=== PATIENT | female | born 1950 | race Caucasian/White ===

== ENCOUNTER 2016-12-13 05:57 | Inpatient (IN) | payer OTHER ==
[2016-12-06 15:12] LABS: % IMMATURE GRANULYOCYTES 0.3 % (0.0-1.1); ABSOLUTE IMMATURE GRANULOCYTES 0.02 10^3/uL (0.00-0.10); ADD DIFF? NO; ADD MORPH? NO; ADD SCAN? NO; ATYPICAL LYMPHOCYTE FLAG 60 (0-99); FRAGMENT RBC FLAG 10 (0-99); HEMATOCRIT 39.6 % (38.0-47.0); HEMOGLOBIN 13.7 g/dL (12.6-16.3); LEFT SHIFT FLG 0 (0-99); LIPEMIA HEMOLYSIS FLAG 90 (0-99); MEAN CELL HEMOGLOBIN 32.7 pg (27.9-34.1); MEAN CELL HEMOGLOBIN CONCENTR. 34.6 g/dL (32.4-36.7); MEAN CELL VOLUME 94.5 fL (81.5-99.8); PLATELET CLUMPS FLAG 10 (0-99); PLATELET COUNT 293 10^3/uL (150-400); RED BLOOD CELL COUNT 4.19 10^6/uL (4.18-5.33); RED CELL DISTRIBUTION WIDTH 12.2 % (11.5-15.2)
[2016-12-13] MEDS ORDERED: FAMOTIDINE 20 MG TAB PO ONE (06:00)
[2016-12-13] MEDS ORDERED: TRANEXAMIC ACID 3,000 MG in NS 50 ML IRR ONE (06:00)
[2016-12-13] MEDS ORDERED: CHLORHEXIDINE GLUC HIBICLENS 118 ML BTL TP ONE (06:00)
[2016-12-13] MEDS ORDERED: DEXAMETHASONE 4 MG/ML VIAL IVP ONE (06:00)
[2016-12-13] MEDS ORDERED: VANCOMYCIN HCL/NORMAL SALINE 250 ML IV ONE (06:00)
[2016-12-13] MEDS ORDERED: ROPI/epiNEPH/KETOROLAC JOINT COCKTAIL IU ONE (06:00)
[2016-12-13] MEDS ORDERED: DEXAMETHASONE 4 MG/ML VIAL ONE (06:26)
[2016-12-13] MEDS ORDERED: ACETAMINOPHEN 325 MG TAB ONE (06:26)
[2016-12-13] MEDS ORDERED: FAMOTIDINE 20 MG TAB ONE (06:26)
[2016-12-13] MEDS ORDERED: LIDOCAINE 2% 5 ML SDV ONE (06:27)
[2016-12-13] MEDS ORDERED: LIDOCAINE 1% 2 ML INJ ONE (06:28)
[2016-12-13] MEDS ORDERED: SKIN ADHESIVE (DERMABOND) 1 EACH TP ONE (06:39)
[2016-12-13] MEDS ORDERED: VANCOMYCIN 1 GM VIAL IV ONE (06:39)
[2016-12-13] MEDS ORDERED: TRANEXAMIC ACID 3,000 MG/50 ML BAG IRR ONE (06:39)
[2016-12-13] MEDS ORDERED: LIDOCAINE 1% 5 ML SDV ID PRN (07:14)
[2016-12-13] MEDS ORDERED: LR 1,000 ML IV ONE (07:14)
[2016-12-13] MEDS ORDERED: BUPIVACAINE 0.25% 30 ML SDV ONE (07:35)
[2016-12-13] MEDS ORDERED: PROPOFOL/EMULSION 500 MG/50 ML BOTTLE IV ONE ×2 (07:36→08:27)
[2016-12-13] MEDS ORDERED: fentaNYL 100 MCG/2 ML INJ ONE (07:36)
[2016-12-13] MEDS ORDERED: diphenhydrAMINE 25 MG CAP PO PRN (07:44)
[2016-12-13] MEDS ORDERED: METOCLOPRAMIDE 10 MG/2 ML VIAL IVP PRN (07:44)
[2016-12-13] MEDS ORDERED: POLYETHYLENE GLYCOL 3350 17 GM PKT PO PRN (07:44)
[2016-12-13] MEDS ORDERED: LACTULOSE 20 GM/30 ML UDCUP PO PRN (07:44)
[2016-12-13] MEDS ORDERED: PROMETHAZINE HCL 25 MG/ML INJ IVP PRN (07:44)
[2016-12-13] MEDS ORDERED: BISACODYL 10 MG SUPP PR PRN (07:44)
[2016-12-13] MEDS ORDERED: PHARMACY PAIN CONSULT 1 EA MISC PRN (07:44)
[2016-12-13] MEDS ORDERED: DIPHENOXYLATE/ATROPINE LOMOTIL 1 TAB PO PRN (07:44)
[2016-12-13] MEDS ORDERED: TEMAZEPAM 15 MG CAP PO PRN (07:44)
[2016-12-13] MEDS ORDERED: MAGNESIUM HYDROXIDE 30 ML UDCUP PO PRN (07:44)
[2016-12-13] MEDS ORDERED: LIDOCAINE 2% 100 MG/5 ML SYR ONE (07:45)
--- NOTE | 2016-12-13 09:06 | POSTOPPROG ---
Post Op Note Date of Operation: 12/13/16 Surgeon: Guy Guzman [employer] Maintainer: pham guzman Anesthesiologist: dr. resendiz Anesthesia: Spinal Pre-op Diagnosis: left knee OA Post-op Diagnosis: same Indication: left knee pain due to OA that failed conservative measuresq Procedure: L TKA Findings: severe lateral knee OA Inf/Abcess present in the surg proc area at time of surgery?: No EBL: 50-100
[2016-12-13] MEDS ORDERED: PROMETHAZINE HCL 25 MG/ML INJ ONE (09:30)
[2016-12-13] MEDS: SENNOSIDES/DOCUSATE SODIUM TAB PO SCH ×2 (10:20→20:40)
[2016-12-13] MEDS: ACETAMINOPHEN 325 MG TAB PO SCH ×2 (11:03→17:31)
[2016-12-13] MEDS: oxyCODONE IR 5 MG TAB PO PRN ×5 (11:03→22:26)
[2016-12-13] MEDS: LR 1,000 ML IV SCH ×2 (12:27→21:23)
[2016-12-13] MEDS: CYCLOBENZAPRINE 10 MG TAB PO PRN (12:38)
[2016-12-13] MEDS: PROMETHAZINE HCL 25 MG TAB PO PRN ×2 (15:01→20:49)
[2016-12-13] MEDS ORDERED: VANCOMYCIN 1 GM in D5W 250 ML IV SCH (19:00)
[2016-12-13] MEDS: DULoxetine 20 MG CAP PO SCH (20:39)
[2016-12-13] MEDS: FAMOTIDINE 20 MG TAB PO SCH (20:40)
[2016-12-13] MEDS ORDERED: DULOXETINE HCL 40 MG PO SCH (21:00)
[2016-12-13] MEDS: ASPIRIN 325 MG TAB PO SCH (21:23)
--- NOTE | 2016-12-13 23:51 | GOP ---
[f rep st] OPERATIVE REPORT DATE OF OPERATION: 12/13/2016 SURGEON: Hortensia Sultana MD FURNITURE ASSEMBLER: Loreto Sultana PA-C. ANESTHESIA: Spinal. PREOPERATIVE DIAGNOSIS: Left knee osteoarthritis. POSTOPERATIVE DIAGNOSIS: Left knee osteoarthritis. PROCEDURE PERFORMED: Left total knee arthroplasty. FINDINGS/PATHOLOGY: Severe lateral and patellofemoral osteoarthritis. ESTIMATED BLOOD LOSS: 30 cc. INDICATIONS: This is a 66-year-old female with severe and progressive pain and deformity of the left knee unresponsive to conservative care. Risks and benefits of the surgical intervention were explained in detail. DESCRIPTION OF PROCEDURE: The patient was brought to the operative room and placed on the table in the supine position. Spinal anesthesia was induced without difficulty. A pneumatic tourniquet was applied about the left proximal thigh, and the leg was prepped and draped in a sterile fashion. The leg hall was applied. After exsanguination by elevation the tourniquet was inflated to 250 mm of mercury. Incision was made anterior medial from the tibial tuberosity to a point 2 cm proximal to the superior pole of the patella. Medial parapatellar arthrotomy was carried out from the superior pole of the patella and posteriorly in line with the fibers of the Type II VMO. The medial collateral ligament was elevated and the infrapatellar fat pad was resected. The patella was everted and the articular surface was excised. A 32 mm patellar button was placed. The distal femoral guide hole was drilled and the 6 degree alignment layla was placed. A 10 mm distal femoral cut was made without difficulty. Attention was turned to the tibia and a standard 6 mm cut based on the medial tibial condyle was performed. The tibial articular surface was excised without difficulty. Attention was turned back to the femur and a size 3 Triathlon femoral cutting block was positioned. Anterior, posterior, and chamfer cuts were made, followed by the intercondylar box cut. The knee was extended and the remnants of the medial and lateral meniscus were excised. The posterior capsule was injected with ropivacaine, epinephrine and Toradol. A size 3 MIS mini-keel tibial tray was positioned. Trial reduction was then carried out. There was excellent range of motion, alignment, and stability using the 13 mm polyethylene. All trials were then removed. The joint was thoroughly irrigated and carefully dried. Two packages of cement and 2 grams of vancomycin were mixed in the vacuum mixer and placed on the fixation surfaces of all surfaces of the components. The components were implanted and all excess cement was thoroughly removed. The permanent 13 mm polyethylene X3 was placed without difficulty. The tourniquet was deflated and all bleeders were coagulated. The wound was thoroughly irrigated and closed using interrupted sutures of 2-0 Vicryl for the joint capsule. The subcu was closed with 3-0 Vicryl and the skin with 4-0 Monocryl. Dermabond and Steri-Strips were applied followed by a compressive dressing. The patient was then moved from the operating room to the recovery room in good condition, having tolerated the procedure well. /[id number]/MODL MTDD
[2016-12-14] MEDS: ACETAMINOPHEN 325 MG TAB PO SCH ×4 (00:25→17:29)
[2016-12-14] MEDS: LEVOTHYROXINE 100 MCG TAB PO SCH (05:10)
[2016-12-14] MEDS: PROMETHAZINE HCL 25 MG TAB PO PRN (05:21)
[2016-12-14 05:50] LABS: HEMATOCRIT 27.8 % (38.0-47.0); HEMOGLOBIN 9.5 g/dL (12.6-16.3)
[2016-12-14] MEDS: oxyCODONE IR 5 MG TAB PO PRN ×4 (05:55→18:37)
[2016-12-14] MEDS: ASPIRIN 325 MG TAB PO SCH (08:45)
[2016-12-14] MEDS: SENNOSIDES/DOCUSATE SODIUM TAB PO SCH ×3 (08:45→21:04)
[2016-12-14] MEDS: FAMOTIDINE 20 MG TAB PO SCH ×3 (08:45→21:04)
[2016-12-14] MEDS: CYCLOBENZAPRINE 10 MG TAB PO PRN ×2 (08:56→17:29)
[2016-12-14] MEDS ORDERED: PROMETHAZINE HCL 25 MG TAB PO PRN (09:01)
--- NOTE | 2016-12-14 09:15 | SOAPPROG ---
SOAP Progress Note Assessment/Plan: Assessment: Patient is doing well POD 1 s/p L TKA 1.Pain management: pain is well controlled on oral pain meds. patient has chronic pain issues, but appears to be doing well this morning with pain management. We increased her oxycodone IR dose from 5-10 mg Q3H to 5-15mg Q4- 6H PRN. Patient states pain is present, but manageable. 2.Anemia: level is expected initially postop. Asymptomatic. Cont to monitor for symptoms 3.VTE ppx: recommend aspirin 325mg daily. Cont JHONY hose and SCD 4. d/c planning: d/c to home today vs tomorrow pending release from PT and continued pain control. Plan: 12/14/16 09:12 Subjective: Stephon is doing well this morning, states she had a significant increase in pain yesterday, but was able to go 8 hours without narcotic pain meds overnight. States pain is present, but manageable. Denies SOB, chest pain and N/V. Objective: Vital Signs Temp Pulse Resp BP Pulse Ox 36.7 C 99 18 132/73 H 94 12/14/16 08:00 12/14/16 08:00 12/14/16 08:00 12/14/16 08:00 12/14/16 08:00 Laboratory Results 12/14/16 05:00 12/13/16 12/14/16 12/15/16 05:59 05:59 05:59 Intake Total 4823 500 Output Total 5200 Balance -377 500 LLE: incision dressing is clean and dry, NVI, +pf/df ICD10 Worksheet Patient Problems: Problems Problem Status Onset Primary localized osteoarthritis of left knee Acute
[2016-12-14] MEDS: DULoxetine 20 MG CAP PO SCH ×2 (21:00→22:14)
[2016-12-14] MEDS: PROMETHAZINE HCL 25 MG SUPPR PR PRN (21:03)
[2016-12-15] MEDS: ACETAMINOPHEN 325 MG TAB PO SCH ×3 (01:02→11:38)
[2016-12-15] MEDS: PROMETHAZINE HCL 25 MG SUPPR PR PRN ×3 (02:59→15:10)
[2016-12-15 04:00] VITALS: RESP 18; O2SAT 93
[2016-12-15] MEDS: oxyCODONE IR 5 MG TAB PO PRN ×3 (04:29→15:49)
[2016-12-15 05:29] LABS: HEMATOCRIT 27.8 % (38.0-47.0); HEMOGLOBIN 9.7 g/dL (12.6-16.3)
[2016-12-15] MEDS: LEVOTHYROXINE 100 MCG TAB PO SCH (06:02)
[2016-12-15 07:29] VITALS: TEMP 98.5
[2016-12-15] MEDS: SENNOSIDES/DOCUSATE SODIUM TAB PO SCH (08:47)
[2016-12-15] MEDS: FAMOTIDINE 20 MG TAB PO SCH (08:47)
[2016-12-15] MEDS: ASPIRIN 325 MG TAB PO SCH (08:47)
--- NOTE | 2016-12-15 11:05 | SOAPPROG ---
SOAP Progress Note Assessment/Plan: Assessment: Patient is doing well POD 2 s/p L TKA 1.Pain management: pain is well controlled on oral pain meds. patient has chronic pain issues, but appears to be doing well this morning with pain management. We increased her oxycodone IR dose from 5-10 mg Q3H to 5-15mg Q4- 6H PRN. Patient states pain is present, but manageable. 2.Anemia: level is expected initially postop. Asymptomatic. Cont to monitor for symptoms 3.VTE ppx: recommend aspirin 325mg daily. Cont JHONY best and SCD 4. d/c planning: d/c to home today pending release from PT and continued pain control. Discussed home health PT with patient and her , as of yesterday they said they don't think they need home health PT as they have already set up outpatient PT. Plan: 12/14/16 09:12 12/15/16 11:03 Subjective: Stephon is doing ok this morning, some nausea and emesis overnight, denies SOB, chest pain. Objective: Vital Signs Temp Pulse Resp BP Pulse Ox 36.9 C 97 18 149/82 H 93 12/15/16 07:28 12/15/16 07:28 12/15/16 07:28 12/15/16 07:28 12/15/16 07:28 Laboratory Results 12/15/16 04:43 12/14/16 12/15/16 12/16/16 05:59 05:59 05:59 Intake Total 4823 2300 Output Total 5200 2300 700 Balance -377 0 -700 LLE: incision dressing is clean and dry, NVI ICD10 Worksheet Patient Problems: Problems Problem Status Onset Primary localized osteoarthritis of left knee Acute
[2016-12-15 11:47] VITALS: BP 150/68; PULSE 96
--- NOTE | 2016-12-15 16:41 | GDS ---
[f rep st] DISCHARGE SUMMARY ADMISSION DIAGNOSIS: Left knee osteoarthritis. DISCHARGE DIAGNOSIS: Left knee osteoarthritis. PROCEDURE: Left total knee arthroplasty. VTE PROPHYLAXIS: Aspirin recommended for 3 weeks daily. BRIEF DESCRIPTION OF HOSPITAL STAY: Patient was admitted for an elective joint arthroplasty. The p atient tolerated the procedure well and has passed physical therapy. The patient was given appropri ate antibiotic prophylaxis and venous thromboembolism prophylaxis. The patient's pain was well cont rolled on oral pain medication, patient was holding down food, and had urinated. Decision was made to discharge the patient. The patient was given post-operative prescriptions pre-operatively. PLAN: Please follow up as scheduled at Dr. Sultana's office in 3 weeks. /[id number]/MODL
== END 2016-12-15 17:02 | disposition home or self-care (01) | DRG 470 ==
LOC: F3N 05:57
PROVIDERS: ADMIT Orthopaedic Surgery; ATTEND Orthopaedic Surgery
PROC: 0SRD0J9 Replacement of Left Knee Joint with Synthetic Substitute, Cemented, Open Approach (ICD-10-PCS; principal; 2016-12-13 08:15)
DX: M17.12 Unilateral primary osteoarthritis, left knee (principal); G89.29 Other chronic pain; E03.9 Hypothyroidism, unspecified; G43.909 Migraine, unspecified, not intractable, without status migrainosus
CPT/HCPCS: 97110-GP; 97116-GP; 97161-GP; 97165-GO; 97530-GP; 97535-GO; C1713; G8978-GP-CJ; G8979-GP-CI; G8980-GP-CI; G8987-GO-CK; G8988-GO-CI; J0171; J1100; J1885; J2001; J2550; J2704; J2765; J2795; J3010; J3370

== ENCOUNTER 2017-02-23 17:48 | Emergency (ER) | payer OTHER ==
[2017-02-23 18:01] VITALS: RESP 16; TEMP 98.4
--- NOTE | 2017-02-23 18:10 | EDPHY ---
H & P Stated Complaint: L side rib pain from 2 days ago Time Seen by Provider: 02/23/17 18:03 HPI/ROS: CHIEF COMPLAINT: Left rib pain HISTORY OF PRESENT ILLNESS: The patient is a 66-year-old female who comes to the emergency department complaining of left-sided rib pain. She states that yesterday she was stretching, reaching out to grab something when she heard a pop and had pain to her left ribs. She states that she cracked her ribs on the right side several years ago with similar movements. She had a knee surgery done last month which is recovering well. She had some extra Percocet and took last night and so was able to sleep but throughout the day today is had significant pain especially with twisting or bending. No pain with deep inspiration. No shortness of breath. REVIEW OF SYSTEMS: Constitutional: denies: chills, fever, recent illness, recent injury EENTM: denies: blurred vision, double vision, nose congestion Respiratory: denies: cough, shortness of breath Cardiac: denies: chest pain, irregular heart rate, lightheadedness, palpitations Gastrointestinal/Abdominal: denies: abdominal pain, diarrhea, nausea, vomiting, blood streaked stools Genitourinary: denies: dysuria, frequency, hematuria, pain Musculoskeletal: See HPI Skin: denies: lesions, rash, jaundice, bruising Neurological: denies: headache, numbness, paresthesia, tingling, dizziness, weakness Hematologic/Lymphatic: denies: blood clots, easy bleeding, easy bruising Immunologic/allergic: denies: HIV/AIDS, transplant EXAM: GENERAL: Well-appearing, well-nourished and in no acute distress. HEAD: Atraumatic, normocephalic. EYES: Pupils equal round and reactive to light, extraocular movements intact, sclera anicteric, conjunctiva are normal. ENT: TMs normal, nares patent, oropharynx clear without exudates. Moist mucous membranes. NECK: Normal range of motion, supple without lymphadenopathy or JVD. LUNGS: Exquisite point tenderness to left anterior ribs 11 and 12. Breath sounds clear to auscultation bilaterally and equal. No wheezes rales or rhonchi. HEART: Regular rate and rhythm without murmurs, rubs or gallops. ABDOMEN: Soft, nontender, normoactive bowel sounds. No guarding, no rebound. No masses appreciated. BACK: No CVA tenderness, no spinal tenderness, step-offs or deformities EXTREMITIES: Normal range of motion, no pitting or edema. No clubbing or cyanosis. NEUROLOGICAL: Cranial nerves II through XII grossly intact. Normal speech, normal gait. 5/5 strength, normal movement in all extremities, normal sensation PSYCH: Normal mood, normal affect. SKIN: Warm, dry, normal turgor, no visible rashes or lesions. Source: Patient Exam Limitations: No limitations - Personal History Current Tetanus/Diphtheria Vaccine: Yes Current Tetanus Diphtheria and Acellular Pertussis (TDAP): Yes - Medical/Surgical History Hx Asthma: No Hx Chronic Respiratory Disease: No Hx Diabetes: Yes Hx Cardiac Disease: No Hx Renal Disease: No Hx Cirrhosis: No Hx Alcoholism: No Hx HIV/AIDS: No Hx Splenectomy or Spleen Trauma: No Other PMH: hypothyroid, Orthopedic injuries - Family History Significant Family History: No pertinent family hx - Social History Smoking Status: Never smoked Alcohol Use: Sober Drug Use: None Constitutional: Initial Vital Signs Temperature (C) 36.9 C 02/23/17 17:49 Heart Rate 90 02/23/17 17:49 Respiratory Rate 16 02/23/17 17:49 Blood Pressure 126/90 H 02/23/17 17:49 O2 Sat (%) 100 02/23/17 17:49 O2 Delivery Mode Room Air Allergies/Adverse Reactions: ondansetron HCl [From Zofran (as hydrochloride)] Allergy (Intermediate, Verified 12/13/16 07:17) alendronate sodium [From Fosamax] Allergy (Unverified 11/13/16 10:57) Swelling/neck,face,throat buprenorphine [From Butrans] Allergy (Unverified 11/13/16 10:58) Vomiting cefaclor [From Ceclor] Allergy (Verified 11/13/16 10:55) cephalexin monohydrate [From Keflex] Allergy (Verified 11/13/16 10:55) ciprofloxacin Allergy (Unverified 11/13/16 10:55) Hives clarithromycin Allergy (Unverified 11/13/16 10:56) Other-Enter Comments erythromycin base Allergy (Verified 11/13/16 10:55) Penicillins Allergy (Verified 03/26/16 13:13) Sulfa (Sulfonamide Antibiotics) Allergy (Verified 11/13/16 10:55) teriparatide [From Forteo] Allergy (Unverified 11/13/16 10:57) Swelling/neck,face,throat Tetracyclines Allergy (Verified 11/13/16 10:55) Home Medications: Medication Instructions Recorded Duloxetine HCl 40 mg PO HS 03/26/16 Levothyroxine [Synthroid 100 mcg 100 mcg PO DAILY06 03/26/16 (*)] Biote 1 unit SQ Q90D 11/13/16 Compounded T3 Tab 24 mcg PO BID 11/13/16 Denosumab [Prolia] 60 mg SQ Q180D 11/13/16 Herbals/Supplements -Info Only 1 ea PO DAILY 11/13/16 Promethazine HCl [Phenergan 25mg 25 mg PO PRN PRN 11/13/16 (*)] oxyCODONE IR [Oxycodone Ir (*)] 5 mg PO HS PRN 11/13/16 Acetaminophen [Tylenol 325mg (*)] 650 mg PO Q6HRS #0 tab 12/14/16 Aspirin [Aspirin 325 mg (*)] 325 mg PO DAILY #0 tab 12/14/16 Sennosides/Docusate Sodium 1 - 2 tab PO BID #0 tab 12/14/16 [Senokot-S] oxyCODONE IR [Oxycodone Ir (*)] 5 - 15 mg PO Q4HRS PRN #0 tab 12/14/16 Medical Decision Making - Diagnostics Imaging Results: Imaging Impressions Ribs w/Chest X-Ray 02/23/17 18:09 Impression: Nondisplaced anterolateral left eighth rib fracture. Imaging: Discussed imaging studies w/ environmental field professional Radiologist, I viewed and interpreted images myself ED Course/Re-evaluation: 7:00 p.m. we discussed the the x-ray results. The patient is reassured. We discussed treatment. She declines pain medication. Differential Diagnosis: Partial list of the Differential diagnosis considered include but were not limited to; the contusion, strain, fracture and although unlikely based on the history and physical exam, I also considered pneumothorax, head injury, neck injury. I discussed these differential diagnoses and the plan with the patient as well as the usual and expected course. The patient understands that the diagnosis is provisional and that in medicine we are not always correct and that further workup is often warranted. Usual and customary warnings were given. All of the patient's questions were answered. The patient was instructed to return to the emergency department should the symptoms at all worsen or return, otherwise to followup with the physician as we discussed. Departure - Departure Disposition: Home, Routine, Self-Care Clinical Impression: Rib fracture Qualifiers: Encounter type: initial encounter Rib fracture type: single rib Fracture type: closed Laterality: left Qualified Code(s): S22.32XA - Fracture of one rib, left side, initial encounter for closed fracture Condition: Fair Instructions: Rib Fracture (ED) Referrals: JERONIMO LEWIS [Primary Care Provider] - As per Instructions
[2017-02-23 19:08] VITALS: BP 140/89; PULSE 89; O2SAT 95
== END 2017-02-23 19:08 | disposition home or self-care (01) ==
DX: S22.32XA Fracture of one rib, left side, initial encounter for closed fracture (principal); E11.9 Type 2 diabetes mellitus without complications; Z79.82 Long term (current) use of aspirin; X58.XXXA Exposure to other specified factors, initial encounter

== ENCOUNTER 2017-03-23 16:54 | Emergency (ER) | payer OTHER ==
--- NOTE | 2017-03-23 17:12 | CPEKG ---
Heart Rate: 85 RR Interval: 706 P-R Interval: 139 QRSD Interval: 84 QT Interval: 372 QTC Interval: 443 P [place]: 72 QRS [place]: 46 T Wave [place]: 57 EKG Severity - NORMAL ECG - EKG Impression: SINUS RHYTHM Electronically Signed By: Tray Tavera 23-Mar-2017 21:04:17
[2017-03-23 17:26] LABS: % IMMATURE GRANULYOCYTES 0.3 % (0.0-1.1); ABSOLUTE IMMATURE GRANULOCYTES 0.02 10^3/uL (0.00-0.10); ADD DIFF? NO; ADD MORPH? NO; ADD SCAN? NO; ATYPICAL LYMPHOCYTE FLAG 10 (0-99); FRAGMENT RBC FLAG 0 (0-99); HEMATOCRIT 37.3 % (38.0-47.0); HEMOGLOBIN 12.8 g/dL (12.6-16.3); LEFT SHIFT FLG 0 (0-99); LIPEMIA HEMOLYSIS FLAG 90 (0-99); MEAN CELL HEMOGLOBIN 31.4 pg (27.9-34.1); MEAN CELL HEMOGLOBIN CONCENTR. 34.3 g/dL (32.4-36.7); MEAN CELL VOLUME 91.4 fL (81.5-99.8); MEAN PLATELET VOLUME 11.2 fL (8.7-11.7); PLATELET CLUMPS FLAG 0 (0-99); PLATELET COUNT 258 10^3/uL (150-400); RED BLOOD CELL COUNT 4.08 10^6/uL (4.18-5.33)
[2017-03-23 17:35] LABS: POTASSIUM 4.2 mEq/L (3.5-5.2); SODIUM 137 mEq/L (134-144)
[2017-03-23 17:36] LABS: ANION GAP 11 mEq/L (8-16); CALCIUM 9.5 mg/dL (8.5-10.4); CARBON DIOXIDE 25 mEq/l (22-31); CHLORIDE 101 mEq/L (97-110); CREATININE 0.8 mg/dL (0.6-1.0); GLOMERULAR FILTRATION RATE > 60; GLUCOSE 89 mg/dL (70-100)
[2017-03-23 17:47] LABS: TROPONIN I < 0.012 ng/mL (0-0.034)
--- NOTE | 2017-03-23 17:56 | EDPHY ---
H & P Time Seen by Provider: 03/23/17 17:38 HPI/ROS: Chief complaint. Chest pain HPI. 66-year-old female presents with tightness across her chest and some discomfort radiating to her left shoulder. She feels slightly short of breath and feels constricted. She describes some of the tightness also has pressure and worse with taking a deep breath. Not worse with exertion. Somewhat worse with movement and she feels that she may be just slept on her chest wrong. She had a knee replacement 2 months ago this is healing and she is having physical therapy she has no unusual pain or swelling. No history of heart or lung problems. No fever or cough. ROS Constitutional. no fever/chills, no weakness Eyes. no problems with vision ENT. no sore throat, no nasal drainage Cardiovascular. Chest pressure and tightness Respiratory. Shortness of breath Abdominal. no abdominal pain, no nausea/vomiting, no diarrhea . no problems urinating MS. no calf pain/swelling, no neck/back pain, no joint pain Skin. no rash Lymph. no swollen glands Neuro. no headache, no dizziness, no difficulty walking or with speech Past Medical/Surgical History: Past medical history significant for knee replacement, hypothyroid Father had some kind of heart disease Social History: , nonsmoker, no alcohol Smoking Status: Never smoked Physical Exam: General Appearance: Alert well-developed female no distress Eyes:[ Pupils equal and round no pallor or injection]. ENT,[ Mouth: Mucous membranes are moist.] Respiratory: [There are no retractions, lungs are clear to auscultation.] Cardiovascular:[ Regular rate and rhythm.] Gastrointestinal: [ Abdomen is soft and nontender, no masses, bowel sounds normal.] Neurological: [Awake and alert, sensory and motor exams grossly normal.] Skin:[ Warm and dry, no rashes.] Musculoskeletal: [Neck is supple nontender.] Extremities [ symmetrical, full range of motion.] Psychiatric:[ Patient is oriented X 3, there is no agitation.] Constitutional: Initial Vital Signs Temperature (C) 36.7 C 03/23/17 16:56 Heart Rate 82 03/23/17 16:56 Respiratory Rate 18 03/23/17 16:56 Blood Pressure 117/97 H 03/23/17 16:56 O2 Sat (%) 98 03/23/17 16:56 O2 Delivery Mode Nasal Cannula O2 (L/minute) 2 Allergies/Adverse Reactions: ondansetron HCl [From Zofran (as hydrochloride)] Allergy (Intermediate, Verified 03/23/17 16:55) alendronate sodium [From Fosamax] Allergy (Verified 03/23/17 16:55) Swelling/neck,face,throat buprenorphine [From Butrans] Allergy (Verified 03/23/17 16:55) Vomiting cefaclor [From Ceclor] Allergy (Verified 03/23/17 16:55) cephalexin monohydrate [From Keflex] Allergy (Verified 03/23/17 16:55) ciprofloxacin Allergy (Verified 03/23/17 16:55) Hives clarithromycin Allergy (Verified 03/23/17 16:55) Other-Enter Comments erythromycin base Allergy (Verified 03/23/17 16:55) Penicillins Allergy (Verified 03/23/17 16:55) Sulfa (Sulfonamide Antibiotics) Allergy (Verified 03/23/17 16:55) teriparatide [From Forteo] Allergy (Verified 03/23/17 16:55) Swelling/neck,face,throat Tetracyclines Allergy (Verified 03/23/17 16:55) Home Medications: Medication Instructions Recorded Compd T3 03/23/17 Denosumab [Prolia] 60 mg SQ 03/23/17 Promethazine HCl [Phenergan 25mg 25 mg PO 03/23/17 (*)] Testosterone Cream 03/23/17 oxyCODONE/APAP 5/325 [Percocet 1 tab PO 03/23/17 5/325 (*)] Medical Decision Making - Diagnostics EKG Interpretation: EKG interpreted by me shows normal sinus rhythm with normal interval and axis. QRS is normal there is no significant ST elevation or depression. No arrhythmia. The rate is 85 Imaging Results: Imaging Impressions Chest/Thorax CTA 03/23/17 18:47 Impression: 1. No evidence of pulmonary embolic disease. 2. See above report for additional findings. Results called and discussed with SALINA MONZON M.D. on 03/23/2017 at 19:49 Procedures: IV normal saline, monitor ED Course/Re-evaluation: Re-evaluation at 8:10 p.m.. Patient is stable. She and I discussed imaging lab results, EKG findings. We discussed treatment plan. Patient is offered admission because of the complaint of chest pressure going to left shoulder though workup is normal. She would prefer to go home and be followed up as an outpatient. She feels that this is muscular and that she slept wrong. She is encouraged to return should her symptoms be worsening. She and I discussed that if this is muscular that with treatment with ibuprofen and symptoms should be better tomorrow. She agrees that if symptoms are not better she will return for further evaluation. Differential Diagnosis: I considered musculoskeletal etiology, acute coronary syndrome, pneumonia, pulmonary embolus. - Data Points Laboratory Results: Laboratory Results 03/23/17 17:17 03/23/17 17:17 03/23/17 03/23/17 03/23/17 18:07 17:17 17:17 WBC 6.57 10^3/uL 10^3/uL (3.80-9.50) RBC 4.08 10^6/uL L 10^6/uL (4.18-5.33) Hgb 12.8 g/dL g/dL (12.6-16.3) Hct 37.3 % L % (38.0-47.0) MCV 91.4 fL fL (81.5-99.8) MCH 31.4 pg pg (27.9-34.1) MCHC 34.3 g/dL g/dL (32.4-36.7) RDW 12.0 % % (11.5-15.2) Plt Count 258 10^3/uL 10^3/uL (150-400) MPV 11.2 fL fL (8.7-11.7) Neut % (Auto) 63.0 % % (39.3-74.2) Lymph % (Auto) 25.4 % % (15.0-45.0) [place] % (Auto) 9.0 % % (4.5-13.0) Eos % (Auto) 1.7 % % (0.6-7.6) Baso % (Auto) 0.6 % % (0.3-1.7) Nucleat RBC Rel Count 0.0 % % (0.0-0.2) Absolute Neuts (auto) 4.14 10^3/uL 10^3/uL (1.70-6.50) Absolute Lymphs (auto) 1.67 10^3/uL 10^3/uL (1.00-3.00) Absolute Monos (auto) 0.59 10^3/uL 10^3/uL (0.30-0.80) Absolute Eos (auto) 0.11 10^3/uL 10^3/uL (0.03-0.40) Absolute Basos (auto) 0.04 10^3/uL 10^3/uL (0.02-0.10) Absolute Nucleated RBC 0.00 10^3/uL 10^3/uL (0-0.01) Immature Gran % 0.3 % % (0.0-1.1) Immature Gran # 0.02 10^3/uL 10^3/uL (0.00-0.10) D-Dimer 0.63 ug/mLFEU H ug/mLFEU (0.00-0.50) Sodium 137 mEq/L mEq/L (134-144) Potassium 4.2 mEq/L mEq/L (3.5-5.2) Chloride 101 mEq/L mEq/L (97-110) Carbon Dioxide 25 mEq/l mEq/l (22-31) Anion Gap 11 mEq/L mEq/L (8-16) BUN 12 mg/dL mg/dL (7-23) Creatinine 0.8 mg/dL mg/dL (0.6-1.0) Estimated GFR > 60 Glucose 89 mg/dL mg/dL (70-100) Calcium 9.5 mg/dL mg/dL (8.5-10.4) Troponin I < 0.012 ng/mL ng/mL (0-0.034) Medications Given: Discontinued Medications Sodium Chloride (Ns) 1,000 mls @ 0 mls/hr IV ONCE ONE PRN Reason: Wide Open Stop: 03/23/17 19:27 Last Admin: 03/23/17 19:26 Dose: 1,000 mls Departure - Departure Disposition: Home, Routine, Self-Care Clinical Impression: Chest wall pain Condition: Good Instructions: Chest Pain (ED) Additional Instructions: Ibuprofen 600 mg every 6 hours for discomfort. Return for worsening chest discomfort or trouble breathing. If your symptoms have not improved tomorrow please return to the emergency department for re-evaluation. Otherwise follow up with Dr. Sanabria on Sunday without fail Referrals: JERONIMO SANABRIA [Primary Care Provider] - 1 day, if not improved
[2017-03-23] MEDS ORDERED: IOPAMIDOL (ISOVUE 370) 100 ML BTL IV ONE (18:55)
[2017-03-23 19:01] VITALS: O2SAT 100
[2017-03-23] MEDS ORDERED: NS 1,000 ML IV ONE (19:26)
[2017-03-23 20:39] VITALS: BP 142/80; PULSE 91; RESP 18; TEMP 97.7
== END 2017-03-23 20:39 | disposition home or self-care (01) ==
DX: R07.89 Other chest pain (principal)
CPT/HCPCS: 71275; 93005; 96360; 99285; Q9967

== ENCOUNTER → 2017-08-27 | Outpatient (CLI) | payer OTHER | LOC: BMCIMAGING 14:57 | PROVIDERS: ATTEND Obstetrics & Gynecology Gynecology | DX: N95.0 Postmenopausal bleeding (principal); Z79.890 Hormone replacement therapy ==